=== PATIENT | female | born 1995 | race African-American/Black ===

== ENCOUNTER 2017-09-15 09:20 | Emergency (ER) | payer OTHER ==
[~2017-09-15] VITALS: Ht 170.2 cm; Wt 97.0 kg
[~2017-09-15 09:20] MED LIST: TOBRA.3%O RIGHT EYE
[2017-09-15 09:22] VITALS: BP 145/84; PULSE 110; RESP 24; TEMP 99.7; O2SAT 100
--- NOTE | 2017-09-15 09:35 | PD ---
HPI Chief Complaint: Fall Time Seen by Provider: 09:35 Travel History International Travel<30 days: No Contact w/Intl Traveler<30days: No Traveled to known affect area: No History of Present Illness HPI 22-year-old female came to the emergency room after slipping and falling on her kitchen floor this morning while she was cooking. Patient says that she smacked her head pretty good on the floor and does not recall if she had a loss of consciousness. Her head was hurting and ears were ringing. She tried to call 911. Eventually she brought herself down here. She is otherwise a healthy person. Currently she is awake and answering questions but appears to be in somewhat distress and upset. Says that her left parietal area hurts. There is some bleeding on the floor she had noticed after the injury. Her last tetanus shot was in 2015 or 2016. [facility] Past Medical History Narrative Medical List of her past medical, surgical, social and family history is reviewed from the nursing note. Medical History: Denies Significant Hx Diminished Hearing: No Respiratory: Yes (ASTHMA) Immunizations Current: Yes ?: Not LMP: 07/2017 Past Surgical History Surgical History: No Previous Surgery Social History Alcohol Use: No Tobacco Use: No Substance Use: No Allergies-Medications (Allergen,Severity, Reaction): Coded Allergies: No Known Allergies (Unverified , 11/06/15) Comments No known drug allergies. Reported Meds & Prescriptions Reported Meds & Active Scripts Active Bacitracin Topical 500 Unit/Gm Oint 1 Applic TOPICAL BID Narrative Medication List of her home medications reviewed from the nursing note. Review of Systems Except as stated in HPI: all other systems reviewed are Neg Neurologic: Positive: Headache Physical Exam Narrative GENERAL: Awake, alert, anxious and tearful SKIN: Focused skin assessment warm/dry. HEAD: Tender in the left parietal area. She has a 2 cm laceration of the scalp with minimal active bleeding. EYES: Pupils equal and round. No scleral icterus. No injection or drainage. ENT: No nasal bleeding or discharge. Mucous membranes pink and moist. NECK: Trachea midline. No JVD. CARDIOVASCULAR: Regular rate and rhythm. No murmur appreciated. RESPIRATORY: No accessory muscle use. Clear to auscultation. Breath sounds equal bilaterally. GASTROINTESTINAL: Abdomen soft, non-tender, nondistended. Hepatic and splenic margins not palpable. MUSCULOSKELETAL: No obvious deformities. No clubbing. No cyanosis. No edema. NEUROLOGICAL: Awake and alert. No obvious cranial nerve deficits. Motor grossly within normal limits. Normal speech. PSYCHIATRIC: Appropriate mood and affect; insight and judgment normal. Data Data Last Documented VS Orders Orders Ct Brain W/O Iv Contrast(Rout) (09/15/17 ) Acetaminophen (Tylenol) (09/15/17 10:00) Ice/Cold Pack (09/15/17 09:53) Ed Discharge Order (09/15/17 10:40) [facility] Medical Decision Making Medical Screen Exam Complete: Yes Emergency Medical Condition: Yes Medical Record Reviewed: Yes Differential Diagnosis Intracranial bleed, skull fracture Narrative Course 10:[address] scan of her head was negative for any intracranial bleed. Patient was given Tylenol for the headache. Her tetanus is up-to-date. I would staple the scalp. Please refer to my procedure note. Patient will be discharged home with instructions after that. Procedures Procedure Narrative LACERATION LOCATION: Left parietal area of the scalp LENGTH: 2 cm NUMBER OF STITCHES/JACKY: 3 jacky REPAIR: The area of the laceration was prepped with Betadine and sterilely draped. The laceration was infiltrated with Nothing. The wound was copiously irrigated and explored without evidence of foreign body, tendon injury or neurovascular injury. The wound was closed using staple gun. This was a single layer repair. A sterile dressing was applied. The patient was advised to keep the dressing clean and dry. Patient tolerated the procedure well. EKG Prior to Arrival: No Diagnosis Primary Impression: Fall Qualified Codes: W19.XXXA - Unspecified fall, initial encounter Additional Impressions: Head injury Qualified Codes: S09.90XA - Unspecified injury of head, initial encounter Scalp laceration Qualified Codes: S01.01XA - Laceration without foreign body of scalp, initial encounter Referrals: Primary Care Physician Additional Instructions: Please return to the ER if condition worsens or any other new concerns. Otherwise follow-up with your primary care. The jacky need to come out in a week to 10 days. Be careful when you combing her hair. Apply the bacitracin ointment twice a day until the jacky are out. Keep the wound clean and dry for next 48 hours. Med/Other Pt SpecificInfo: Prescription(s) given Scripts Bacitracin Topical (Bacitracin Topical) 500 Unit/Gm Oint 1 APPLIC TOPICAL BID for Infection, #30 GM 0 Refills Prov: Ximena Bailey MD 09/15/17 Disposition: 01 DISCHARGE HOME Condition: Stable Ximena Bailey MD Sep 15, 2017 09:35
[2017-09-15] MEDS ORDERED: ACETAMINOPHEN 325 MG TAB PO ONE (10:00)
--- NOTE | 2017-09-15 10:25 | RADRPT ---
EXAM DATE/TIME: 09/15/2017 10:15 [place] COMPARISON: No previous studies available for comparison. INDICATIONS : Slipped and fell, hit head on floor. RADIATION DOSE: 56.35 CTDIvol (mGy) MEDICAL HISTORY : Asthma SURGICAL HISTORY : None. ENCOUNTER: Initial ACUITY: 1 day PAIN SCALE: 10/10 LOCATION: Left cranial TECHNIQUE: Multiple contiguous axial images were obtained of the head. Using automated exposure control and adj ustment of the mA and/or kV according to patient size, radiation dose was kept as low as reasonably a chievable to obtain optimal diagnostic quality images. DICOM format image data is available electro nically for review and comparison. FINDINGS: CEREBRUM: The ventricles are normal for age. No evidence of midline shift, mass lesion, hemorrhage or acute in farction. No extra-axial fluid collections are seen. POSTERIOR FOSSA: The cerebellum and brainstem are intact. The 4th ventricle is midline. The cerebellopontine angle i s unremarkable. EXTRACRANIAL: The visualized portion of the orbits is intact. SKULL: The calvaria is intact. No evidence of skull fracture. There is soft tissue swelling over the high l eft parietal bone. CONCLUSION: Mild soft tissue swelling over the left parietal bone with no evidence of hemorrhage or fracture. Justin Gresham MD on September 15, 2017 at 10:21 Board Certified Radiologist. This report was verified electronically.
[2017-09-15] MEDS ORDERED: BACI500O9 TOPICAL (10:36)
== END 2017-09-15 13:37 | disposition home or self-care (01) ==
LOC: NEPE 09:20
DX: S01.01XA Laceration without foreign body of scalp, initial encounter (principal); W01.0XXA Fall on same level from slipping, tripping and stumbling without subsequent striking against object, initial encounter; Y93.G3 Activity, cooking and baking; Y92.000 Kitchen of unspecified non-institutional (private) residence as the place of occurrence of the external cause
CPT/HCPCS: 12001; 70450

== ENCOUNTER 2017-09-24 12:12 | Emergency (ER) | payer OTHER, MEDICAID ==
[~2017-09-24] VITALS: Ht 170.2 cm; Wt 98.0 kg
[~2017-09-24 12:12] MED LIST changes: +BACI500O9 TOPICAL; -TOBRA.3%O RIGHT EYE
[2017-09-24 12:13] VITALS: BP 138/95; PULSE 62; RESP 16; TEMP 98.7; O2SAT 100
--- NOTE | 2017-09-24 14:00 | PD ---
HPI Chief Complaint: Wound/Suture/Staple Re-Check Time Seen by Provider: 13:53 Travel History International Travel<30 days: No Contact w/Intl Traveler<30days: No Traveled to known affect area: No History of Present Illness HPI 22-year-old female here for staple removal. She was seen on September 15 after a fall. She sustained a left parietal scalp laceration which was repaired with jacky. She reports slight itching. She is otherwise asymptomatic. PFSH Past Medical History Diminished Hearing: No Respiratory: Yes (ASTHMA) Immunizations Current: Yes Social History Alcohol Use: No Tobacco Use: No Substance Use: No Allergies-Medications (Allergen,Severity, Reaction): Coded Allergies: No Known Allergies (Unverified Adverse Reaction, Unknown, 09/24/17) Reported Meds & Prescriptions Reported Meds & Active Scripts Active Bacitracin Topical 500 Unit/Gm Oint 1 Applic TOPICAL BID Review of Systems General / Constitutional: No: Fever Skin: Positive Other (positive for laceration, jacky, itching) Physical Exam Narrative GENERAL: Well-nourished female in no acute distress SKIN: Warm and dry. There is a 1 cm well-healing laceration to left parietal scalp with [address] HEAD: Skin as noted above. Normocephalic. EYES: Pupils equal and round reactive to light extraocular muscles are intact. No scleral icterus. No injection or drainage. ENT: No nasal bleeding or discharge. Mucous membranes pink and moist. NECK: Trachea midline. No JVD. NEUROLOGICAL: Awake and alert. No obvious cranial nerve deficits. Motor grossly within normal limits. Normal speech. Data Data Last Documented VS Vital Signs Date Time Temp Pulse Resp B/P (MAP) Pulse Ox O2 Delivery O2 Flow Rate FiO2 09/24/17 12:13 98.7 62 16 138/95 (109) 100 Orders Orders Ed Discharge Order (09/24/17 13:58) MDM Medical Decision Making Medical Screen Exam Complete: Yes Emergency Medical Condition: Yes Medical Record Reviewed: Yes Differential Diagnosis Staple removal, wound dehiscence, infected wound Narrative Course The jacky were removed without incident. Diagnosis Primary Impression: Removal of jacky Med/Other Pt SpecificInfo: Wound Care Disposition: 01 DISCHARGE HOME Condition: Stable Tj Chavira Sep 24, 2017 14:00
== END 2017-09-24 14:19 | disposition home or self-care (01) ==
LOC: NEPD 12:12
DX: Z48.02 Encounter for removal of sutures (principal); J45.909 Unspecified asthma, uncomplicated
CPT/HCPCS: 99281